=== PATIENT | male | born 2005 | race Two or more races ===

== ENCOUNTER 2025-01-29 01:59 | Emergency (ER) | payer OTHER ==
[~2025-01-29] VITALS: Ht 188 cm; Wt 99.0 kg
[~2025-01-29 01:59] MED LIST: CHILDREN'S CHE1 EAC1 PO; CONCERTA18 MG PO; MELATIN3 MG PO
[2025-01-29] MEDS ORDERED: LACTATED RINGER'S 1,000 ML IV ONE (02:00)
[2025-01-29] MEDS ORDERED: ONDANSETRON 4 MG HOME.PACK SL ONE (02:30)
[2025-01-29 02:39] VITALS: BP 142/75
== END 2025-01-29 02:40 | disposition home or self-care (01) ==
LOC: ED 01:59
DX: F12.929 Cannabis use, unspecified with intoxication, unspecified (principal); Z88.0 Allergy status to penicillin; Z79.899 Other long term (current) drug therapy
CPT/HCPCS: 99283; A9270; J7121